=== PATIENT | female | born 1955 | race African-American/Black ===

== ENCOUNTER 2022-04-11 15:25 | Outpatient (REF) | payer OTHER, SELFPAY ==
--- NOTE | ~2022-04-11 | XR_ITS ---
EXAMINATION: LUMBAR SPINE AND SACROILIAC JOINT X-RAYS CLINICAL INFORMATION: Spondylosis without myelopathy or radiculopathy COMPARISON: None TECHNIQUE: 6 views of the lumbar spine and 3 views of the sacroiliac joints FINDINGS: Lumbar spine: There is mild curvature of the mid lumbar spine to the left and lower lumbar sacral spine to the right. Bone alignment is otherwise normal. No fracture or dislocation is seen. No instability on flexion-extension views is seen. There is degenerative disc disease at L5-S1. There is lower lumbar spine facet arthritis, greater on the right. Sacroiliac joints: Sacroiliac joints are normal. No evidence of proliferative or erosive arthritis is seen. There is mild atherosclerotic disease. XR/XR lumbar spine 6V w bending IMPRESSION: Lumbar spine: Mild curvature of the lumbar sacral spine. Degenerative disc disease at L5-S1 and mild lower lumbar spine facet arthritis.
--- NOTE | ~2022-04-11 | XR_ITS ---
EXAMINATION: LUMBAR SPINE AND SACROILIAC JOINT X-RAYS CLINICAL INFORMATION: Spondylosis without myelopathy or radiculopathy COMPARISON: None TECHNIQUE: 6 views of the lumbar spine and 3 views of the sacroiliac joints FINDINGS: Lumbar spine: There is mild curvature of the mid lumbar spine to the left and lower lumbar sacral spine to the right. Bone alignment is otherwise normal. No fracture or dislocation is seen. No instability on flexion-extension views is seen. There is degenerative disc disease at L5-S1. There is lower lumbar spine facet arthritis, greater on the right. Sacroiliac joints: Sacroiliac joints are normal. No evidence of proliferative or erosive arthritis is seen. There is mild atherosclerotic disease. XR/XR sacroiliac joint min 3V IMPRESSION: Lumbar spine: Mild curvature of the lumbar sacral spine. Degenerative disc disease at L5-S1 and mild lower lumbar spine facet arthritis.
== END 2022-04-11 15:26 | disposition home or self-care (01) ==
LOC: HO.XRAY 15:25
PROVIDERS: PCP Internal Medicine; Visit Provider Nurse Practitioner Family
DX: M47.816 Spondylosis without myelopathy or radiculopathy, lumbar region (principal); M51.36 Other intervertebral disc degeneration, lumbar region; M53.3 Sacrococcygeal disorders, not elsewhere classified
CPT/HCPCS: 72114; 72202

== ENCOUNTER → 2022-04-19 15:33 | Outpatient (BNVA) | payer OTHER, SELFPAY | PROVIDERS: PCP Internal Medicine; Visit Provider Nurse Practitioner Family | DX: M53.3 Sacrococcygeal disorders, not elsewhere classified (principal) ==

== ENCOUNTER 2022-05-08 11:23 | Day surgery (SDC) | payer MEDICARE, SELFPAY ==
--- NOTE | 2022-05-07 10:12 | HO.ANESPROP2 ---
HPI - Anesthesia Eval Consult details Narrative: 67yo F for Left ?Diagnostic Sacroiliac Joint Injection PMFSH Active Problems Active Problems: All Active Problems (Updated 04/21/22 @ 23:36 by DARBY Hurt) Sacroiliitis (Acute) Past Medical History Medical History Chronic kidney disease, stage 3 History of Olivarez's palsy Meds Allergies Allergy/AdvReac Type Severity Reaction Status Date / Time ibuprofen AdvReac Unknown Unknown Verified 04/19/22 15:34 NSAIDS (Non-Steroidal AdvReac Unknown Unknown Verified 04/19/22 15:34 Anti-Inflamma Home Medications Medication Instructions Recorded Confirmed Last Taken Type allopurinol 300 mg tablet 300 mg PO DAILY 04/11/22 Unknown History amlodipine 5 mg tablet 5 mg PO DAILY 04/11/22 Unknown History bupropion HCl 150 mg 24 hr tablet, 300 mg PO QAM 04/11/22 Unknown History extended release diclofenac sodium 1 % topical gel 1 ea TOPICAL BID 04/11/22 Unknown History famotidine 20 mg tablet 20 mg PO BID 04/11/22 Unknown History fluticasone propionate 50 1 spray INTRANASAL DAILY 04/11/22 Unknown History mcg/actuation nasal spray,suspension gabapentin 300 mg capsule 0 mg PO 04/11/22 Unknown History ipratropium 20 mcg-albuterol 100 1 puff INHALATION Q6H 04/11/22 Unknown History mcg/actuation mist for inhalation (Combivent Respimat) trazodone 50 mg tablet 50 mg PO DAILY 04/11/22 Unknown History Exam Exam Date and Time: May 07, 2022 1012
--- NOTE | ~2022-05-08 | FL_ITS ---
EXAMINATION: XR FLUOROSCOPY WITH IMAGES CLINICAL INFORMATION: Sacroiliac joint injection. COMPARISON: 04/11/2022 TECHNIQUE: Fluoroscopy performed by Dr Baker FLUOROSCOPY TIME: 0.2 minutes DAP: 0.986 Gy-cm2 FLUOROSCOPY IMAGES: 2 FINDINGS: 2 images taken in the operating room with C-arm demonstrate a needle directed over the left sacroiliac joint. FL/FL guidance in OR IMPRESSION: Fluoroscopy used for pain management injection.
[2022-05-08 12:10] VITALS: BP 151/93; PULSE 83; RESP 16; TEMP 36.5; O2SAT 94; BMI 34.3
[2022-05-08] MEDS: Lactated Ringers 1,000 ML 100 ML IVCONT (12:19)
--- NOTE | 2022-05-08 12:31 | HO.ANESPROP2 ---
HPI - Anesthesia Eval Consult details Narrative: 67 F for Left SI joint left sided olivarez s palsy PMFSH Active Problems Active Problems: All Active Problems (Updated 04/21/22 @ 23:36 by DARBY Hurt) Sacroiliitis (Acute) Past Medical History Medical History Chronic kidney disease, stage 3 History of Olivarez's palsy Family History Family history of problems with anesthesia: No Surgical History History of Problems with Anesthesia: No Social History Social History Patient Tobacco Use Status: Never used Tobacco Second Hand Smoke Exposure: No Use of substances other than those prescribed or required for medical reasons: No Are you DNR?: No Advance Directives: No Advance Directives Information Provided: Yes Advance Directives on File: No Meds Allergies Allergy/AdvReac Type Severity Reaction Status Date / Time ibuprofen AdvReac Unknown Unknown Verified 04/19/22 15:34 NSAIDS (Non-Steroidal AdvReac Unknown Unknown Verified 04/19/22 15:34 Anti-Inflamma Active Medications: Current Medications Albuterol Sulfate (Albuterol Sulfate (0.083%) 2.5 Mg/3 Ml Vial.Neb) 2.5 mg INHALE ONCE PRN PRN Reason: Shortness of Breath/Wheezing Lactated Ringer's (Lr) 1,000 mls @ 100 mls/hr IVCONT .Q10H CESAR Last Admin: 05/08/22 12:19 Dose: 100 mls/hr Home Medications Medication Instructions Recorded Confirmed Last Taken Type allopurinol 300 mg tablet 300 mg PO DAILY 04/11/22 Unknown History amlodipine 5 mg tablet 5 mg PO DAILY 04/11/22 Unknown History bupropion HCl 150 mg 24 hr tablet, 300 mg PO QAM 04/11/22 Unknown History extended release diclofenac sodium 1 % topical gel 1 ea topical BID 04/11/22 Unknown History famotidine 20 mg tablet 20 mg PO BID 04/11/22 Unknown History fluticasone propionate 50 1 spray intranasal DAILY 04/11/22 Unknown History mcg/actuation nasal spray,suspension gabapentin 300 mg capsule 0 mg PO 04/11/22 Unknown History ipratropium 20 mcg-albuterol 100 1 puff inhalation Q6H 04/11/22 Unknown History mcg/actuation mist for inhalation (Combivent Respimat) trazodone 50 mg tablet 50 mg PO DAILY 04/11/22 Unknown History Exam Exam Date and Time: May 08, 2022 1231 Height,Weight and Vital Signs: Height 5 ft 4 in Weight 90.718 kg Last Vital Signs Temp 97.7 F 05/08/22 12:10 Pulse 83 05/08/22 12:10 Resp 16 05/08/22 12:10 BP 151/93 H 05/08/22 12:10 Pulse Ox 94 05/08/22 12:10 O2 Del Method 05/08/22 12:10 Airway Mallampati Class: III TM Dist: >3cm Neck ROM: Full Loose/Missing/Broken Teeth: Yes Heart: S1, S2 Lungs: b/l breath sounds Assessment and Plan Assessment Anesthesia Assessment: Anesthesia Plan Discussed and Chart Reviewed Final Anesthetic Review Family History of Problems with Anesthesia: No History of Problems with Anesthesia: No NPO: Yes ASA Class: II Final Preanesthetic Review: Meds/Allgs Chart Reviewed, Consent Obtained/Reviewed and Anes Risks/Benef Reviewed Patient Risk: Intermediate Procedure Risk: Intermediate Anesthetic Plan Anesthetic Plan: MAC: Disposition: Standard PACU
[2022-05-08 14:15] VITALS: BP 148/84; PULSE 83; RESP 14; TEMP 36.1; O2SAT 90
[2022-05-08 14:30] VITALS: BP 116/73; PULSE 77; RESP 16; O2SAT 94
[2022-05-08 14:45] VITALS: BP 132/81; PULSE 78; RESP 16; TEMP 36.1; O2SAT 93
--- NOTE | 2022-05-10 11:03 | MHC.SHP ---
Pre-Procedural Eval Section A Date of Service: 05/08/22 The patient is an INPATIENT: No Changes since office visit: Yes Patient answered all questions The History & Physical has been completed within 30 days and I have reviewed it.: Yes Section B Chief Complaint: sacrococcygeal disorders Relevant Social History: None Present Medications: None Medical History: Significant History (SI dysfunction) History of Previous Operations: Relevant previous surgery/procedure and date(s) Allergies: Allergies Allergy/AdvReac Type Severity Reaction Status Date / Time ibuprofen AdvReac Unknown Unknown Verified 04/19/22 15:34 NSAIDS (Non-Steroidal AdvReac Unknown Unknown Verified 04/19/22 15:34 Anti-Inflamma Review of Systems Sugical H&P ROS: Negative: Constitution, Cardiovascular, Respiratory and Neurological Exam Surgical H&P Exam: Normal: HEENT, Normal: Heart and Normal: Lungs Plan Diagnosis/Plan: Unchanged I have reviewed the history and physical and performed a pertinent physical examination on my patient. No changes have occurred unless specified.
--- NOTE | 2022-05-10 11:04 | P.BOP_ITS ---
Brief Operative Note Date of Service: 05/08/22 Pre-op diagnosis: Sacroiliac joint dysfunction Post-op diagnosis: same Procedure: Left diagnostic sacroiliac joint injection Surgeon: Chilango Baker MD Anesthesia: MAC Was an Human Resources Support Specialist used for this Procedure?: No Estimated blood loss (mL): 0 Pathology: none sent Condition: stable Disposition: PACU
--- NOTE | 2022-05-10 11:06 | P.OP_ITS ---
Operative Note Operative Note Date of Service: 05/08/22 Narrative: Sacroiliac Joint Injection, Left The procedure, its benefits, and its risks were explained and written informed consent was obtained from the patient. Immediately prior to starting the procedure, a time-out safety check was conducted. The patient's identification, procedure name, procedure site, and procedure laterality were confirmed with the patient. ? Patient was placed prone on the fluoroscopy table, sedated by the manager of hospital and the lumbosacral area was prepped using ChloraPrep and draped with sterile drapein standard fashion. The C-arm was rotated in a contralateral oblique fashion until the medial border of the iliac crest no longer foreshadowed the posterior sacroiliac joint line. The skin and subcutaneous tissue was anesthetized using 1 mL of 0.75% plain lidocaine with 1.5-inch 25-gauge needle in the middle region of the joint line.? A 3.5-inch 22-gauge spinal needle with small bend on the tip was slowly advanced towards the joint line, coaxial to the x-ray beam. Once bony content was obtained, the needle was easily slid into the intra-articular space.? Intra-articular needle position was confirmed using lateral fluoroscopy.? A total volume of 3mL of solution containing 0.5% of ropivacaine was injected intra-articularly. The stylet was reinserted and needle was removed. The patient was brought to the PACU in stable condition. The patient tolerated the procedure well. Patient denied any lower extremity weakness or numbness. Patient was observed for 30 min and was discharged after fulfilling the standard discharge criteria.
== END 2022-05-08 15:12 | disposition home or self-care (01) ==
PROVIDERS: PCP Internal Medicine; Visit Provider Internal Medicine
PROC: 3E0U33Z Introduction of Anti-inflammatory into Joints, Percutaneous Approach (ICD-10-PCS; CPT 27096; principal; 2022-05-08 13:00)
DX: M53.3 Sacrococcygeal disorders, not elsewhere classified (principal); M51.37 Other intervertebral disc degeneration, lumbosacral region; M54.50 Low back pain, unspecified; N18.30 Chronic kidney disease, stage 3 unspecified; Z86.69 Personal history of other diseases of the nervous system and sense organs; Z79.899 Other long term (current) drug therapy; Z88.8 Allergy status to other drugs, medicaments and biological substances
CPT/HCPCS: G0260; J2250; J3010

== ENCOUNTER → 2022-05-13 14:56 | Outpatient (BNVA) | payer MEDICARE, SELFPAY | PROVIDERS: Visit Provider Anesthesiology | DX: M47.816 Spondylosis without myelopathy or radiculopathy, lumbar region (principal); M51.36 Other intervertebral disc degeneration, lumbar region; M53.3 Sacrococcygeal disorders, not elsewhere classified; M46.1 Sacroiliitis, not elsewhere classified | CPT/HCPCS: Q3014 ==

== ENCOUNTER 2022-05-30 10:22 | Day surgery (SDC) | payer MEDICARE, SELFPAY ==
--- NOTE | 2022-05-29 10:15 | HO.ANESPROP2 ---
Documented by User: Sandra Guerrero NP 05/29/22 10:20 HPI - Anesthesia Eval Consult details Narrative: 67yo F for Left Sacroiliac Joint Steroid Injection s/p same 05/08/22 with [facility]A PMFSH Active Problems Active Problems: All Active Problems (Updated 04/21/22 @ 23:36 by DARBY Hurt) Sacroiliitis (Acute) Past Medical History Medical History Chronic kidney disease, stage 3 History of Olivarez's palsy Family History Family history of problems with anesthesia: No Surgical History History of Problems with Anesthesia: No Social History Social History Patient Tobacco Use Status: Never used Tobacco Second Hand Smoke Exposure: No Use of substances other than those prescribed or required for medical reasons: No Are you DNR?: No Advance Directives: No Advance Directives Information Provided: Yes Meds Allergies Allergy/AdvReac Type Severity Reaction Status Date / Time ibuprofen AdvReac Unknown Unknown Verified 05/13/22 14:56 NSAIDS (Non-Steroidal AdvReac Unknown Unknown Verified 05/13/22 14:56 Anti-Inflamma Home Medications Medication Instructions Recorded Confirmed Last Taken Type allopurinol 300 mg tablet 300 mg PO DAILY 04/11/22 Unknown History amlodipine 5 mg tablet 5 mg PO DAILY 04/11/22 Unknown History bupropion HCl 150 mg 24 hr tablet, 300 mg PO QAM 04/11/22 Unknown History extended release diclofenac sodium 1 % topical gel 1 ea topical BID 04/11/22 Unknown History famotidine 20 mg tablet 20 mg PO BID 04/11/22 05/30/22 09:30 History fluticasone propionate 50 1 spray intranasal DAILY 04/11/22 Unknown History mcg/actuation nasal spray,suspension gabapentin 300 mg capsule 0 mg PO 04/11/22 Unknown History ipratropium 20 mcg-albuterol 100 1 puff inhalation Q6H 04/11/22 Unknown History mcg/actuation mist for inhalation (Combivent Respimat) trazodone 50 mg tablet 50 mg PO DAILY 04/11/22 Unknown History Exam Exam Date and Time: May 29, 2022 1015 Assessment and Plan Assessment Anesthesia Assessment: Chart Reviewed Final Anesthetic Review Family History of Problems with Anesthesia: No History of Problems with Anesthesia: No Documented by User: Chilango Baker MD 05/30/22 13:10 [facility] Past Medical History Medical History Chronic kidney disease, stage 3 History of Olivarez's palsy Social History Social History Patient Tobacco Use Status: Never used Tobacco Second Hand Smoke Exposure: No Use of substances other than those prescribed or required for medical reasons: No Are you DNR?: No Advance Directives: No Advance Directives Information Provided: Yes Meds Allergies Allergy/AdvReac Type Severity Reaction Status Date / Time ibuprofen AdvReac Unknown Unknown Verified 05/13/22 14:56 NSAIDS (Non-Steroidal AdvReac Unknown Unknown Verified 05/13/22 14:56 Anti-Inflamma Home Medications Medication Instructions Recorded Confirmed Last Taken Type allopurinol 300 mg tablet 300 mg PO DAILY 04/11/22 Unknown History amlodipine 5 mg tablet 5 mg PO DAILY 04/11/22 Unknown History bupropion HCl 150 mg 24 hr tablet, 300 mg PO QAM 04/11/22 Unknown History extended release diclofenac sodium 1 % topical gel 1 ea topical BID 04/11/22 Unknown History famotidine 20 mg tablet 20 mg PO BID 04/11/22 05/30/22 09:30 History fluticasone propionate 50 1 spray intranasal DAILY 04/11/22 Unknown History mcg/actuation nasal spray,suspension gabapentin 300 mg capsule 0 mg PO 04/11/22 Unknown History ipratropium 20 mcg-albuterol 100 1 puff inhalation Q6H 04/11/22 Unknown History mcg/actuation mist for inhalation (Combivent Respimat) trazodone 50 mg tablet 50 mg PO DAILY 04/11/22 Unknown History Exam Airway Mallampati Class: II TM Dist: >3cm Neck ROM: Full Partial: Upper Loose/Missing/Broken Teeth: Yes Assessment and Plan Assessment Anesthesia Assessment: Anesthesia Plan Discussed Final Anesthetic Review NPO: Yes ASA Class: III Final Preanesthetic Review: No Changes in Pt Med Stat, Meds/Allgs Chart Reviewed, Consent Obtained/Reviewed and Anes Risks/Benef Reviewed Patient Risk: Intermediate Procedure Risk: Low Anesthetic Plan Anesthetic Plan: MAC: Disposition: Standard PACU
--- NOTE | ~2022-05-30 | FL_ITS ---
EXAMINATION: XR FLUOROSCOPY WITH IMAGES CLINICAL INFORMATION: Pain COMPARISON: Radiographs lumbar spine 04/11/2022 TECHNIQUE: Fluoroscopy performed by Dr. Rui Linares. Fluoroscopy time: 11 seconds Cumulative dose: 394 mGy Images: 1 FINDINGS: There is a spinal needle overlying the mid to lower aspect left sacroiliac joint. FL/FL guidance in OR IMPRESSION: Fluoroscopy for pain management procedure.
[2022-05-30 10:57] VITALS: BMI 34.3
[2022-05-30 11:06] VITALS: BP 137/86; PULSE 78; RESP 16; TEMP 36.3; O2SAT 95
[2022-05-30] MEDS: Lactated Ringers 1,000 ML 100 ML IVCONT (11:08)
--- NOTE | 2022-05-30 12:10 | MHC.SHP ---
Pre-Procedural Eval Section A Date of Service: 05/30/22 The patient is an INPATIENT: No Changes since office visit: Yes Patient answered all questions The History & Physical has been completed within 30 days and I have reviewed it.: No Section B Chief Complaint: Sacrococcygeal disorders, Details of Present Illness: as above Relevant Family History (Specify if Yes): No Relevant Social History: Other (specify) Present Medications: None Medical History: No relevant PMH History of Previous Operations: No relevant previous surgery Allergies: Allergies Allergy/AdvReac Type Severity Reaction Status Date / Time ibuprofen AdvReac Unknown Unknown Verified 05/13/22 14:56 NSAIDS (Non-Steroidal AdvReac Unknown Unknown Verified 05/13/22 14:56 Anti-Inflamma Review of Systems Sugical H&P ROS: Negative: Cardiovascular, Respiratory, Neurological, Psychiatric, Hem-Onc, Allergic/Immunologic, Gastrointestinal, Genitourinary, Musculoskeletal, Integumentary, Endocrine and Eyes/Ears/Nose/Throat and Yes, Specify: Constitution (trivial obesity) Exam Surgical H&P Exam: Normal: HEENT, Normal: Heart, Normal: Lungs, Normal: Extremities, Normal: Abdomen, Normal: Skin and Normal: Neurological Plan Diagnosis/Plan: Unchanged I have reviewed the history and physical and performed a pertinent physical examination on my patient. No changes have occurred unless specified.
--- NOTE | 2022-05-30 12:51 | PM.OP ---
Brief Operative Note Date of Service: 05/30/22 Pre-op diagnosis: Sacroiliitis, left sacroiliac joint dysfunction Post-op diagnosis: same Procedure: sacroiliac joint steroid injection left Implants: none permanent Surgeon: Rui Linares MD Was an Organic Section Technical Lead used for this Procedure?: No Estimated blood loss (mL): 0 Pathology: none sent Condition: stable Disposition: PACU
--- NOTE | 2022-05-30 12:52 | W.PM.OPN ---
Operative Note Operative Note Date of Service: 05/30/22 Narrative: left sacroiliac joint steroid injection Informed consent was explained thoroughly to the patient.? All questions about benefits and risks for the procedure were answered. ? Patient came to the operating room she was positioned prone on the operating table with the pillow under her pelvis.? Time-out was performed delineating name and date of of the patient nature of the procedure And the side and site of the procedure. ? Her lower back and buttocks was prepped with ChloraPrep prepped and draped with sterile towels.? Sterilely draped C-arm was brought over the operating field and sq picture of patient's pelvis was demonstrated on the screen.? For the left joint tilting C-arm contralateral to the site of the joint 15 degrees the most posterior portion of the joints were clearly delineated on the screen and superimposed over anterior portion of the joint.? Skin was injected in the projection of the joint slightly medial to the location of the joint with 25 gauge 1/2 inch needle using local lidocaine 2% without epinephrine. ? After that 22 gauge 3 and 1/2 inch needle was driven to the point of interest in tunnel vision fashion.? When needle entered the joint capsule injection of the contrast was performed demonstrating intra-articular and minimally periarticular spread of the contrast.? After that 4 cc. of bupivacaine 0.5% with epinephrine mixed with Kenalog 40 mg was injected into the left joint.? Upon completion of the injections the needles were removed and pressure were applied.? Sterile dressing was applied.? Upon completion of the injection patient was taken- outside of the operating room to the recovery room where she recovered uneventfully.? She went home without immediate complications.
[2022-05-30 12:55] VITALS: BP 131/80; PULSE 97; RESP 16; TEMP 36.4; O2SAT 96
[2022-05-30 13:10] VITALS: BP 136/85; PULSE 91; RESP 16; O2SAT 94
[2022-05-30 13:25] VITALS: BP 146/86; PULSE 84; RESP 16; TEMP 36.2; O2SAT 95
[2022-05-30 13:40] VITALS: BP 141/85; PULSE 85; RESP 16; TEMP 36.2; O2SAT 94
== END 2022-05-30 14:22 | disposition home or self-care (01) ==
PROVIDERS: PCP Internal Medicine; Visit Provider Anesthesiology
PROC: 3E0U33Z Introduction of Anti-inflammatory into Joints, Percutaneous Approach (ICD-10-PCS; CPT 27096; principal; 2022-05-30 11:30)
DX: M46.1 Sacroiliitis, not elsewhere classified (principal); G89.29 Other chronic pain; M53.3 Sacrococcygeal disorders, not elsewhere classified; M51.36 Other intervertebral disc degeneration, lumbar region; M47.816 Spondylosis without myelopathy or radiculopathy, lumbar region; N18.30 Chronic kidney disease, stage 3 unspecified; Z88.8 Allergy status to other drugs, medicaments and biological substances
CPT/HCPCS: G0260; J2250; J3010; J3300; Q9967

== ENCOUNTER 2025-02-22 09:06 | Outpatient (AMB) | payer MEDICARE, SELFPAY ==
[2025-02-22 09:25] VITALS: BP 124/72; PULSE 60; O2SAT 98
--- NOTE | 2025-02-22 09:25 | A.OFFVIS_ITS ---
Vital Signs 02/22/25 09:25 BP 124/72 Blood Pressure Location Rt brachial Position Sitting Pulse 60 Pulse Source Pulse Oximeter Pulse Oximetry (%) 98 Oxygen Delivery Method Room Air Intake Visit Reasons: COPD Stamp Mounter Required: No Embedded Case Manager: Embedded Case Manager offered & declined Accompanied by: Self / Same As Patient Allergies ibuprofen Adverse Reaction (Unknown, Verified 02/22/25 09:27) Unknown NSAIDS (Non-Steroidal Anti-Inflamma Adverse Reaction (Unknown, Verified 02/22/25 09:27) Unknown bees Allergy (Uncoded 02/22/25 09:27) Hives Medication List - Last Reconciled 02/22/25 by Lynn Pride, MISTY allopurinol 300 mg PO DAILY amlodipine 5 mg PO DAILY bupropion HCl XL 300 mg PO QAM diclofenac sodium 1% 1 ea topical BID epinephrine 0.3 mg IM Q30M PRN famotidine 20 mg PO BID fluticasone propionate 50 mcg/actuation 1 spray intranasal DAILY gabapentin 0 mg PO ipratropium-albuterol 20-100 mcg/actuation (Combivent Respimat) 1 puff inhalation Q6H metoprolol succinate ER 50 mg PO BID omeprazole 20 mg PO BID tiotropium bromide 2.5 mcg/actuation (Spiriva Respimat) 2 puffs inhalation DAILY trazodone 50 mg PO DAILY valsartan 320 mg PO DAILY HPI HPI COPD: Details: Casi is a pleasant 69 year female, former smoker, with 60 pack year history quit 8 years with underlying COPD, HTN, Gout and CKDIII. She was referred by PCP for pulmonary evaluation. She has been suboptimally controlled on Spiriva and albuterol MDI. She continues to report dyspnea on exertion, such as yardwork and on the treadmill, using albuterol MDI frequently. She previously was on Advair and felt she was benefitting however discontinued for unknown reasons. PFT 2022 revealed mild obstructive defect, positive bronchodilator response with m oderately decreased DLCO. LDCT through [facility], last 03/24 revealed stable nodules <4mm with an upcoming CT scheduled in March. She denies prior h/o asthma. Denies any hospitalizations related to respiratory distress or need for supplemental oxygen. She denies any occupational exposures. She reports sister, smoker, with COPD. [facility] Medical History Chronic kidney disease, stage 3 History of Olivarez's palsy Social History (Updated 02/22/25 @ 09:30 by Lynn Pride LPN) Patient Tobacco Use Status: Former Tobacco user Tobacco use type: Cigarette Cigarette Packs Per Day: 2 Years Smoked: 50 yrs / quit 8-10yrs ago Second Hand Smoke Exposure: No Review of Systems Const Denies chills, Denies excessive sweating, Denies fever(s), Denies headache(s) and Denies night sweats Eyes Denies dry eyes, Denies irritation and Denies itchy eyes ENT Reports Normal hearing present, Denies headache(s), Denies nasal congestion, Denies nasal discharge, Denies post nasal drip and Denies sore throat Card Denies chest pain, Denies chest pain at rest, Denies chest pain with activity, Denies claudication, Denies leg edema, Denies orthopnea and Denies paroxysmal nocturnal dyspnea Resp Denies chest congestion, Denies excessive phlegm production, Denies pain on inspiration, Denies pain with cough, Denies stridor and Denies wheezing Musc Denies myalgias Neuro Reports Normal hearing present and Denies headache(s) Endo Denies excessive sweating Stephen/Lymph Denies lymphadenopathy Aller/Immun Denies itchy eyes, Denies seasonal rhinorrhea and Denies wheezing Physical Exam Vital Signs: Last Vital Signs Pulse 60 02/22/25 09:25 BP 124/72 02/22/25 09:25 Pulse Ox 98 02/22/25 09:25 Oxygen Delivery Method Room Air 02/22/25 09:25 Const General: cooperative, healthy appearing, comfortable, no acute distress, well developed and alert Orientation/consciousness: patient oriented x3 Limitations: no limitations HEENT Head: Yes normal to inspection, Yes normocephalic and Yes atraumatic Ears: hearing grossly normal bilaterally and external ears normal Eyes General: appearance normal, both eyes and all related structures Eyelids: Yes eyelids normal Sclerae: sclerae normal EOM: EOMs intact bilaterally Neck Neck: Yes normal visual inspection and Yes no lymphadenopathy Lymphatic: no lymphadenopathy noted Chest Chest palpation & inspection: normal inspection of the chest Resp Effort & Inspection: normal respiratory effort, able to speak in complete sen tences, no audible wheezes, no cough, no stridor, not tachypneic, no tripod positioning and no use of accessory muscles Auscultation: diminished lung sounds Cardio Jugular venous distension: no JVD Rate: regular rate Rhythm: regular rhythm Skin Other: warm, dry General skin exam: no rashes or lesions noted Neuro General: patient oriented x3 Cranial nerves: Yes Normal hearing present Cognition (Neuro): normal cognition Gait exam (Neuro): Normal gait present Extrem General: Yes normal to inspection, Yes capillary refill normal, Yes no clubbing, cyanosis or edema and Yes no pedal edema Psych Appearance: grossly normal and well kempt Speech and movement: Normal speech and movement present and Clear speech present Affect: normal affect Attitude: cooperative Thought process: Normal thought process present Thought content: Normal thought content present Insight: Good insight present (Psych) Judgement: Good judgement present (Psych) Assessment & Plan Assessment & Plan (1) COPD (chronic obstructive pulmonary disease): Code(s): J44.9 - Chronic obstructive pulmonary disease, unspecified Category: Medical (2) Personal history of tobacco use: Code(s): Z87.891 - Personal history of nicotine dependence Category: Social Hx (3) Multiple pulmonary nodules: Code(s): R91.8 - Other nonspecific abnormal finding of lung field Category: Medical Plan Casi presents for pulmonary evaluation for likely poorly controlled COPD. Will switch Spiriva to Trelegy. Discussed importance of good oral hygiene to prevent thrush. She has repeat chest CT scheduled through [facility] to assess stability of pulmonary nodules given smoking history. All questions were answered and patient is in agreement of plan. Will follow up in 6-8 weeks or sooner if needed. Medications: New dpdavolurxj-iwkdodhqh-dtbobtvw 200-62.5-25 mcg (Trelegy Ellipta) 1 inh inhalation DAILY 60 ea 3RF Coding Level of Care Code New Pt Level 4 (68464) Diagnoses COPD (chronic obstructive pulmonary disease) J44.9 Personal history of tobacco use Z87.891 Multiple pulmonary nodules R91.8
--- OUTSIDE RECORDS SUMMARY | 2025-02-22 10:03 | XMS_ITS | Clinical Summary ---
Author Organization [facility] Address [address] [place] [id number] Care Team Providers Care User Experience Developer Name Role Phone Salas Murcia PA-C Primary Care Provider Allergies Active Allergy Reactions Criticality Noted Date Comments Bee Sting 03/13/2022 Medications Medication Sig Dispensed Refills Start Date End Date Status allopurinol (ZYLOPRIM) 300 MG tablet 0 12/17/2021 Active amLODIPine (NORVASC) tablet 2.5 mg 0 01/15/2022 Active buPROPion (WELLBUTRIN XL) 150 MG 24 hr tablet 0 03/04/2022 A ctive Diclofenac Sodium 1 % GEL 0 03/04/2022 Active Advair Diskus 250-50 MCG/DOSE DISKUS 0 02/27/2022 Active Combivent Respimat 20-100 MCG/ACT inhaler 0 02/27/2022 Ac tive lidocaine (LIDODERM) 5 % Apply topically. 0 01/22/2021 Active morphine (MSIR) 15 MG tablet Take 15 mg by mouth. 0 01/22/2021 Active Social History Tobacco Use Types Packs/Day Years Used Date Smoking Tobacco: Former Cigarettes Q uit: 03/13/2016 Alcohol Use Standard Drinks/Week Comments Yes 1 (1 standard drink = 0.6 oz pur e alcohol) Sex and Gender Information Value Date Recorded Sex Assigned at Not on file Gender Identity Not on file Sexual Orientation Not on file Job Start Date Occupation Industry Not on file Not on file Not on file Last Filed Vital Signs Vital Sign Reading Time Taken Comments Blood Pressure - - Pulse - - Temperature - - Respiratory Rate - - Oxygen Saturation - - Inhaled Oxygen Concentration - - Weight 90.7 kg (200 lb) 03/13/2022 10:59 AM EDT Height 162.6 cm (5' 4 ) 03/13/2022 10:59 AM EDT Body Mass Index 34.33 03/13/2022 10:59 AM EDT Plan of Treatment Health Maintenance Due Date Last Done Comments Hepatitis C Screening 1954 COVID-19 Vaccine (#1) 1954 Depression Screening 1966 BMI Counseling 1972 Preventative Health Evaluation 1972 DTap / Tdap / Td (1 - Tdap) 1973 Colon Cancer Screening (Colonoscopy) 1999 Breast Cancer Screening (Mammogram) 2004 Shingrix-Zoster Vaccine (1 of 2) 2004 Fall Risk Assessment 2019 Osteoporosis Screening (DEXA Scan) 2019 Pneumococcal Vaccine (1 of 1 - PCV) 2019 Influenza Vaccine (#1) 2024 RSV Adult > 60+ Yrs or Pregn ant (1 - 1-dose 75+ series) 2029 Hepatitis B Vaccines Aged Out No long er eligible based on patient's age to complete this topic RSV Ped < 20 months Aged Out No longe r eligible based on patient's age to complete this topic Care Teams User Experience Developer Relationship Specialty Start Date End Date Salas Murcia PAIanC PCP - General Medical Services 02/12/22
== END 2025-02-22 10:03 | disposition home or self-care (01) ==
LOC: HO.HPSW 09:07
PROVIDERS: PCP Family Medicine; Referring Provider Family Medicine; Visit Provider Nurse Practitioner Family
DX: J44.9 Chronic obstructive pulmonary disease, unspecified (principal); Z87.891 Personal history of nicotine dependence; R91.8 Other nonspecific abnormal finding of lung field
CPT/HCPCS: 99204

== ENCOUNTER → 2025-02-22 09:06 | Outpatient (BNVA) | payer MEDICARE, SELFPAY | PROVIDERS: PCP Family Medicine; Referring Provider Family Medicine; Visit Provider Nurse Practitioner Family | DX: J44.9 Chronic obstructive pulmonary disease, unspecified (principal); R91.8 Other nonspecific abnormal finding of lung field; Z87.891 Personal history of nicotine dependence | CPT/HCPCS: 99202 ==

== ENCOUNTER 2025-04-05 12:59 | Outpatient (AMB) | payer MEDICARE, SELFPAY ==
[2025-04-05 13:03] VITALS: BP 138/82; PULSE 58; O2SAT 98
--- NOTE | 2025-04-05 13:03 | MHC.OFFVIS ---
Vital Signs 04/05/25 13:03 Height 5 ft 4 in BMI Reason not done Patient refused/unable BP 138/82 Blood Pressure Location Rt brachial Position Sitting Pulse 58 Pulse Source Pulse Oximeter Pulse Oximetry (%) 98 Oxygen Delivery Method Room Air Intake Visit Reasons: COPD Allergies ibuprofen Adverse Reaction (Unknown, Verified 04/05/25 13:07) Unknown NSAIDS (Non-Steroidal Anti-Inflamma Adverse Reaction (Unknown, Verified 04/05/25 13:07) Unknown bees Allergy (Uncoded 04/05/25 13:07) Hives HPI HPI COPD: Details: Casi is a pleasant 70 year female, former smoker, with 60 pack year history quit 8 years with underlying mild COPD, HTN, Gout and CKDIII. At the last visit, she reported suboptimal control on Spiriva and albuterol MDI, switched to Trelegy with minimal change in symptoms. She continues report intermittent dyspnea on exertion, using albuterol MDI infrequently. Denies cough, wheezing or chest tightness. PFT 2022 revealed mild obstructive defect, positive bronchodilator response with moderately decreased DLCO. LDCT through [facility], last 03/24 revealed stable nodules <4mm, repeat LDCT 03/2025 revealed stable findings. She denies any visits to urgent care or hospitalizations related to respiratory distress since the last visit. [facility] Medical History Chronic kidney disease, stage 3 History of Olivarez's palsy Social History Patient Tobacco Use Status: Former Tobacco user Tobacco use type: Cigarette Cigarette Packs Per Day: 2 Years Smoked: 50 yrs / quit 8-10yrs ago Second Hand Smoke Exposure: No Review of Systems Const Denies chills, Denies excessive sweating, Denies fever(s), Denies headache(s) and Denies night sweats Eyes Denies dry eyes, Denies irritation and Denies itchy eyes ENT Reports Normal hearing present, Denies headache(s), Denies nasal congestion, Denies nasal discharge, Denies post nasal drip and Denies sore throat Card Denies chest pain, Denies chest pain at rest, Denies chest pain with activity, Denies claudication, Denies leg edema, Denies orthopnea and Denies paroxysmal nocturnal dyspnea Resp Denies chest congestion, Denies cough, Denies excessive phlegm production, Denies pain on inspiration, Denies pain with cough, Denies stridor and Denies wheezing Musc Denies myalgias Neuro Reports Normal hearing present and Denies headache(s) Endo Denies excessive sweating Stephen/Lymph Denies lymphadenopathy Aller/Immun Denies itchy eyes, Denies seasonal rhinorrhea and Denies wheezing Physical Exam Const General: cooperative, healthy appearing, comfortable, no acute distress, well developed and alert Orientation/consciousness: patient oriented x3 Limitations: no limitations HEENT Head: Yes normal to inspection, Yes normocephalic and Yes atraumatic Ears: hearing grossly normal bilaterally and external ears normal Eyes General: appearance normal, both eyes and all related structures Eyelids: Yes eyelids normal Sclerae: sclerae normal EOM: EOMs intact bilaterally Neck Neck: Yes normal visual inspection and Yes no lymphadenopathy Lymphatic: no lymphadenopathy noted Chest Chest palpation & inspection: normal inspection of the chest Resp Effort & Inspection: normal respiratory effort, able to speak in complete sentences, no audible wheezes, no cough, no stridor, not tachypneic, no tripod positioning and no use of accessory muscles Auscultation: diminished lung sounds Cardio Jugular venous distension: no JVD Rate: regular rate Rhythm: regular rhythm Skin Other: warm, dry General skin exam: no rashes or lesions noted Neuro General: patient oriented x3 Cranial nerves: Yes Normal hearing present Cognition (Neuro): normal cognition Gait exam (Neuro): Normal gait present Extrem General: Yes normal to inspection, Yes capillary refill normal, Yes no clubbing, cyanosis or edema and Yes no pedal edema Psych Appearance: grossly normal and well kempt Speech and movement: Normal speech and movement present and Clear speech present Affect: normal affect Attitude: cooperative Thought process: Normal thought process present Thought content: Normal thought content present Insight: Good insight present (Psych) Judgement: Good judgement present (Psych) Results Reviewed Results Reviewed: RESULT: CT Chest LDCT Lung Program CT Chest LDCT Lung Program Reason: Other:; LDCT LUNG CANCER SCREENING PROGRAM, FORMER SMOKER, QUIT AT AGE 60, 40 PACK YEAR HX; Clinical Question(s): Other:; Special Instructions: BOOK AT [address], [place] BOOK AFTER 03 [address] IN THE LAST 12 MONTHS NO LUNG CA OR SIGNS AND SYMPTOMS OF LUNG CA Visit type: Annual Screening TECHNIQUE: Low-dose helical CT of the chest without IV contrast (Adult Lung Cancer Screening) protocol was performed. Coronal reformats were obtained. Weight-based protocol using automatic tube modulation was used to optimize exposure parameters. CTDIvol Body: 2.56 mGy, DLP Body: 92 mGy*cm. COMPARISON: CT Chest LDCT 03/15/2024 FINDINGS: LUNG NODULES (measured on thin axial series 603): RIGHT lun.4 cm nodule along the major fissure, image 96, unchanged, likely reflecting an intrapulmonary lymph node. Punctate calcified granuloma in the right middle lobe. LEFT lun.2 cm nodule in the left lower lobe, image 136, unchanged. OTHER FINDINGS: Mortgage Loan Originator view findings, lines and tubes: None. Trachea and airways: Patent without evidence of tracheal or endobronchial lesion. Lungs and pleura: Mild bibasilar atelectasis. Mild centrolobular emphysematous changes. No effusion or pneumothorax. Mediastinum and jesus: No mass or hematoma. No mediastinal or hilar lymphadenopathy. No esophageal abnormality. Heart: Heart is normal in size. No pericardial effusion. Aorta: Mild vascular calcification but no aneurysm. Pulmonary arteries: Normal caliber. Chest wall soft tissues: No acute abnormality. Diaphragm: Intact. Upper abdomen: No significant abnormality. Bones: No acute abnormality. Multilevel degenerative changes of the visualized spine. IMPRESSION: 1. LungRad Category: 2 Benign Appearance or Behavior. Nodules with a very low likelihood of becoming a clinically active cancer due to size or lack of growth. Continue annual screening with LDCT in 12 months. 2. No significant additional findings requiring further evaluation. Lung-RAD Category Modifier: None. Categorization based on Lung-RADS 2022 criteria. [email or web address] WSN: [id number] Ordering Physician: Tonio Cates Reason For Exam LDCT LUNG CANCER SCREENING PROGRAM, FORMER SMOKER, QUIT AT AGE 60, 40 PACK YEAR HX;Other: Signature Line Dictated By: Chante Bowen MD Dictated Date/Time: 03/18/25 2:42 pm Reviewed By: Chante Bowen MD Signed By: Chante Bowen MD Signed Date/Time: 03/18/25 2:42 pm Transcribed By: JASMYNE Assessment & Plan Assessment & Plan (1) COPD (chronic obstructive pulmonary disease): Code(s): J44.9 - Chronic obstructive pulmonary disease, unspecified Category: Medical (2) Personal history of tobacco use: Code(s): Z87.891 - Personal history of nicotine dependence Category: Social Hx (3) Multiple pulmonary nodules: Code(s): R91.8 - Other nonspecific abnormal finding of lung field Category: Medical Plan Encouraged Casi to continue Trelegy and use albuterol MDI. If symptoms do not improve call office. Reviewed report from LDCT which revealed stable nodules <4mm and will have repeat LDCT 03/2026 through [facility]. All questions were answered and patient is in agreement of plan. Will follow up in 3-6 months or sooner if needed. Medications: Refilled swqmthcpdpk-abeshcxvn-ojtncmuq 200-62.5-25 mcg (Trelegy Ellipta) 1 inh inhalation DAILY 60 ea 6RF Coding Level of Care Code Est Pt Level 4 (63126) Diagnoses COPD (chronic obstructive pulmonary disease) J44.9 Personal history of tobacco use Z87.891 Multiple pulmonary nodules R91.8
--- OUTSIDE RECORDS SUMMARY | 2025-04-05 14:09 | XMS_ITS | Clinical Summary ---
Author Organization [facility] Address [address] [place] [id number] Care Team Providers Care Long Chain Beamer Name Role Phone Salas Murcia PA-C Primary [...] age to complete this topic Care Teams Long Chain Beamer Relationship Specialty Start Date End Date Salas Murcia PAIanC PCP - General Medical Services 02/12/22
== END 2025-04-05 13:25 | disposition home or self-care (01) ==
LOC: HO.HPSW 12:59
PROVIDERS: PCP Family Medicine; Visit Provider Nurse Practitioner Family
DX: J44.9 Chronic obstructive pulmonary disease, unspecified (principal); Z87.891 Personal history of nicotine dependence; R91.8 Other nonspecific abnormal finding of lung field
CPT/HCPCS: 99214

== ENCOUNTER → 2025-04-05 12:59 | Outpatient (BNVA) | payer MEDICARE, SELFPAY | PROVIDERS: PCP Family Medicine; Visit Provider Nurse Practitioner Family | DX: J44.9 Chronic obstructive pulmonary disease, unspecified (principal); R91.8 Other nonspecific abnormal finding of lung field; Z87.891 Personal history of nicotine dependence | CPT/HCPCS: 99212 ==